=== PATIENT | female | born 1950 | race Two or more races ===

== ENCOUNTER 2023-01-28 07:47 | Inpatient (IN) | payer OTHER ==
[~2023-01-28] VITALS: Ht 157.5 cm; Wt 72.6 kg
[2023-01-29] MEDS ORDERED: SYNTHROID88 MCG PO (10:29)
[2023-01-29] MEDS ORDERED: ATACAND32 MG PO (10:29)
[2023-01-29] MEDS ORDERED: ATORVASTATIN CA40 MG PO (10:30)
[2023-01-29 10:37] LABS: URINE APPEARANCE Clear; URINE BILIRRUBIN Negative (NEGATIVE); URINE BLOOD Trace; URINE COLOR Yellow; URINE GLUCOSE Negative (NEGATIVE); URINE LEUKOCYTE Small; URINE NITRATE Negative; URINE UROBILINOGEN 0.2 E.U./dl
[2023-01-29 10:41] LABS: URINE BACTERIA 60.4 uL (0.0-1933); URINE EPITHELIAL CELLS 10.6 uL (0.0-38.8); URINE RBC 27.5 uL (0.0-20.8); URINE WBC 88.3 uL (0.0-23.2)
[2023-01-29 10:42] LABS: URINE PROTEIN 100 (NEGATIVE)
[2023-01-29 11:24] LABS: HEMOGLOBIN 13.2 g/dL (12.0-15.00); MEAN CELL VOLUME 90.8 fL (80.00-100.00); MEAN CORPUSCULAR HGB CONC 33.1 g/dl (32.0-36.0); PLATELET COUNT 292 K/uL (150-450); RED CELL DISTRIBUTION WIDTH 14.4 % (11.5-14.5)
[2023-01-29 11:56] LABS: BILIRUBIN TOTAL 0.54 mg/dL (0.3-1.2); CALCIUM 9.4 mg/dL (8.5-10.1); CREATININE SERUM 1.08 mg/dL (0.55-1.02); GFR 49.73; GLOBULINA 3.5 G/DL (2.4-3.5); POTASSIUM 4.2 mEq/L (3.5-5.1); TOTAL PROTEIN 7.5 gm/dL (6.4-8.2)
[2023-01-29 11:57] LABS: INR 1.04; PARTIAL THROMBOPLASTIN TIME 30.7 SECONDS (22.0-34.0); PROTHROMBIN TIME 10.9 SECONDS (9.0-11.5)
[2023-02-03] MEDS ORDERED: FLONASE16 GM (14:30)
[2023-02-03] MEDS ORDERED: DILTIAZEM HCL30 MG (14:30)
[2023-02-03] MEDS ORDERED: GABAPENTIN100 M2 (14:30)
[2023-02-03] MEDS ORDERED: MEGESTROL ACETA40 MG (14:30)
[2023-02-03] MEDS ORDERED: ALENDRONATE SOD70 MG (14:30)
[2023-02-03] MEDS ORDERED: B-122500 MCG (14:31)
[2023-02-03 23:15] LABS: HEMATOCRIT 34.6 % (36.0-45.00); HEMOGLOBIN 11.6 g/dL (12.0-15.00); MEAN CELL VOLUME 88.9 fL (80.00-100.00); MEAN CORPUSCULAR HEMOGLOBIN 29.8 pg (27.00-32.0); MEAN CORPUSCULAR HGB CONC 33.5 g/dl (32.0-36.0); PLATELET COUNT 286 K/uL (150-450); RED BLOOD COUNT 3.89 M/uL (4.00-6.00); RED CELL DISTRIBUTION WIDTH 14.3 % (11.5-14.5)
== END 2023-02-06 13:09 | disposition home or self-care (01) | DRG 743 ==
LOC: OB/GYN 02-03 08:15 → O/R 02-03 10:50 → OB/GYN 02-03 18:04
PROVIDERS: Obstetrics & Gynecology; ADMIT Obstetrics & Gynecology; ATTEND Obstetrics & Gynecology
PROC: 0UT20ZZ Resection of Bilateral Ovaries, Open Approach (ICD-10-PCS; 2023-02-03)
PROC: 0UT90ZZ Resection of Uterus, Open Approach (ICD-10-PCS; principal; 2023-02-03 09:30)
DX: N84.0 Polyp of corpus uteri (principal); D25.0 Submucous leiomyoma of uterus; D27.1 Benign neoplasm of left ovary; Z20.822 Contact with and (suspected) exposure to COVID-19